=== PATIENT | male | born 1985 | race Hispanic/Latino ===

== ENCOUNTER 2017-04-23 07:20 | Inpatient (IN) | payer MEDICAID ==
--- NOTE | 2017-04-23 12:54 | C.PDOC ---
History Of Present Illness 31 y/o male presents to ED transferred from [facility] in [place] by EMS for psych evaluation on depression. Patient is accepted for admission at Hospital. No other complaints at this time. Time Seen by Provider: 04/23/17 07:56 Chief Complaint (Nursing): Psychiatric Evaluation History Per: Patient History/Exam Limitations: no limitations Onset/Duration Of Symptoms: Days Current Symptoms Are (Timing): Still Present Past Medical History Reviewed: Historical Data, Nursing Documentation, Vital Signs Vital Signs: Last Vital Signs Temp 97.1 F L 04/24/17 08:08 Pulse 60 04/24/17 08:08 Resp 19 04/24/17 08:08 BP 118/67 04/24/17 08:08 Pulse Ox 98 04/23/17 12:55 - Medical History PMH: Anxiety, Depression Family History: States: No Known Family Hx - Social History Hx Alcohol Use: Yes Hx Substance Use: Yes Review Of Systems Respiratory: Negative for: Shortness of Breath Skin: Negative for: Rash Neurological: Negative for: Headache, Dizziness Psych: Positive for: Depression. Negative for: Suicidal ideation Physical Exam - Physical Exam Appears: Non-toxic, No Acute Distress Skin: Normal Color, Warm Head: Atraumatic, Normacephalic Neck: Supple Cardiovascular: Rhythm Regular Respiratory: Normal Breath Sounds Gastrointestinal/Abdominal: Soft, No Tenderness Extremity: Normal ROM Neurological/Psych: Oriented x3, Normal Speech, Normal Cognition ED Course And Treatment O2 Sat by Pulse Oximetry: 98 (RA) Pulse Ox Interpretation: Normal Medical Decision Making Medical Decision Making: Pt stable for PES evaluation / admission Disposition - Disposition Disposition: HOSPITALIZED Disposition Time: 00:00 Condition: GOOD - Clinical Impression Clinical Impression: Depression - Scribe Statement The provider has reviewed the documentation as recorded by the Aidaibemeterio Leos All medical record entries made by the Aidaibemeterio were at my direction and personally dictated by me. I have reviewed the chart and agree that the record accurately reflects my personal performance of the history, physical exam, medical decision making, and the department course for this patient. I have also personally directed, reviewed, and agree with the discharge instructions and disposition.
[2017-04-23] MEDS: Multiple Vitamins Tab PO SCH (14:35)
--- NOTE | 2017-04-23 14:50 | PCM.PSYCH ---
Initial Psychiatric Evaluation - Initial Psychiatric Evaluation Type of Admission: Voluntary Legal Status: Capacity Chief Complaint (in patient's own words): "I'm sick of being a drug addict." History of Present Illness and Precipitating Events: Patient is a 32 year old male who lives with his mother in [place], [place]. He is from his . He has two kids, ages 5 and 2. 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 Pt has history of anxiety and depression being treated with gabapentin, trazodone, zoloft, and klonopin. His insurance ran out 2 months ago so he was not able to fill his medications, and started doing drugs. Pt came to the ED after overdosing on ecstasy. Pt states he used 30 ecstasy pills over 3 days. He stayed awake and in his car for 3 days while on ecstasy, stating that at first he used them to "forget his problems" but then he didn't care. Pt also uses cocaine nasally, $40 worth per day. he also drinks 1 pint of alcohol a day and experiences sweats/shaking if he does not drink. Pt smokes 1/2 ppd, and smokes pot. Pt has a history of crystal meth use. Patient denies opioid use. He has no AVH or delusions. Not manic but has ADHD sxs (since childhood) Pin Machine Operator spoke to his mother with his consent and she reported that he is suffering form "severe anxiety" and resorts to drugs all the time. Pt wants to go to inpatient rehab program. Past psych history: depression, anxiety Medical history: none Fam psych history: denies Fam abuse history: father and paternal uncles - alcohol abuse Current Medications: Active Medications Generic Name Dose Route Start Last Admin Trade Name Freq PRN Reason Stop Dose Admin Chlordiazepoxide 25 mg 04/23/17 13:28 Librium PO Q4H PRN Alcohol Withdrawal Clonidine HCl 0.1 mg 04/23/17 13:28 Catapres PO Q4H PRN Symptoms of alcohol withdrawl Escitalopram Oxalate 5 mg 04/23/17 13:30 04/23/17 14:35 Lexapro PO 5 mg DAILY YAYO Administration Folic Acid 1 mg 04/23/17 13:30 04/23/17 14:45 Folic Acid PO 1 mg DAILY YAYO Administration Gabapentin 300 mg 04/23/17 14:00 04/23/17 14:34 Neurontin PO 300 mg TID YAOY Administration Multivitamins 1 tab 04/23/17 13:30 04/23/17 14:35 Hexavitamin PO 1 tab DAILY YAYO Administration Nicotine 1 patch 04/23/17 13:30 04/23/17 14:34 Nicoderm Cq TD 1 patch DAILY YAYO Administration Pneumococcal Polyvalent Vaccine 0.5 ml 04/26/17 10:00 Pneumovax 23 Vaccine IM 04/26/17 10:01 .ONCE ONE Quetiapine Fumarate 100 mg 04/23/17 22:00 Seroquel PO HS YAYO Thiamine HCl 100 mg 04/23/17 13:30 04/23/17 14:34 Vitamin B1 Tab PO 100 mg DAILY YAYO Administration Trazodone HCl 50 mg 04/23/17 13:28 Desyrel PO HS PRN Insomnia Past Psychiatric History - Past Psychiatric History Previous Treatment History: Inpatient Pertinent Medical Hx (Current Medical&Sleep Prob, Allergies): Allergies Allergy/AdvReac Type Severity Reaction Status Date / Time No Known Allergies Allergy Verified 04/23/17 07:33 No Known Home Med 04/23/17 Review of Systems - Review of Systems All systems: reviewed and no additional remarkable complaints except - Psychiatric Psychiatric: Anxiety, Depression. absent: Hallucinations, Homicidal Ideation, Suicidal Ideation Mental Status Examination - Personal Presentation Personal Presentation: Looks older than stated age - Affect Affect: Broad - Motor Activity Motor Activity: Calm - Reliability in Providing Information Reliability in Providing Information: Good - Speech Speech: Organized - Mood Mood: Depressed, Anxious - Formal Thought Process Formal Thought Process: No Impairment - Obsessions/Compulsions Obsessions: No Compulsions: No - Cognitive Functions Orientation: Person, Place, Situation, Time Sensorium: Alert Attention/Concentration: Attentive Judgement: Intact, as evidence by: Insight regarding need for hospitalization Memory: Recent intact, as evidence by: Ability to recall events of the day, Remote intact, as evidenced by: Abilit to recall sig. life events - Risk Risk: Withdrawal, Diminished functioning - Strength & Assets Inventory Strength & Assets Inventory: Family support, Employment status, Cooperative - Limitations Limitations: Living alone DSM 5 DX - DSM 5 DSM 5 Diagnosis: Major depression, recurrent, severe, not-psychotic ANGELLA panic d/o Cocaine use d/o Stimulant use d/o - Recommended/Plan of Treatment Treatment Recommendations and Plan of Treatment: Depression - Seroquel and Lexapro - CBT and support Anxiety - Seroquel and lexapro - CBT and support - Relaxation skills - Gabapentin Alcohol use disorder -CBT -psychoeducation -supportive/individual therapy -use ND for abstinence -Librium if needed - Catapres prn Tobacco Use Disorder -nicotine replacement therapy Stimulants, cocaine: - Gabapentin - ND for abstinence 33 min Projected ELOS: 7 days Prognosis: good Discharge Plan and Discharge Criteria: No severe dep sxs refer to rehab or iop
[2017-04-24] MEDS: Multiple Vitamins Tab PO SCH (09:54)
--- NOTE | 2017-04-24 11:41 | PCM.PYCHPN ---
Psychiatric Progress Note - Psychiatric Progress Note Patient seen today, length of contact: 16 minutes Patient Chief Complaint: "I'm alright." Problems Identified/Issues Discussed: Patient seen, chart reviewed, and case discussed with staff. Pt states he is doing alright. He called his job yesterday to inform them he in the hospital, and states they fired him since he used his sick/paid leave days already. Pt states, "I don't care about losing my job, I can get another job. I just need to fix my life first." Pt denies any withdrawal symptoms. As per nursing staff, patient slept and ate well. Pt compliant with medications and reports no side effects. Pt's symptoms are improving- more time needed to stabilize. Support, psychoeducation given. After care discussed - patient wants to go to in -patient rehab. Pt informed to make phone calls to rehabs. Time: 16 min Mental Status Examination - Cognitive Function Orientation: Person, Place, Situation, Time Memory: Intact Attention: WNL Concentration: WNL Association: WNL Fund of Knowledge: WNL - Mood Mood: Depressed, Anxious - Affect Affect: Broad - Speech Speech: Appropriate - Formal Thought Process Formal Thought Process: No Impairment - Suicidal Ideation Suicidal Ideation: No - Homicidal Ideation Homicidal Ideation: No Goal/Treatment Plan - Goal/Treatment Plan Need for Continued Stay: Remain at risks for inpatient hospitalization, Discharge may exacerbated symptoms Progress Toward Problem(s) and Goals/Treatment Plan: Major Depressive Disorder - Seroquel and Lexapro - CBT and supportive tx - Attend groups and activities - Support and psychieducation ANGELLA - Seroquel and lexapro - CBT and support - Relaxation skills - Gabapentin Alcohol use disorder -CBT -psychoeducation -supportive/individual therapy -use [place] for abstinence -Librium if needed - Catapres prn Tobacco Use Disorder -nicotine replacement therapy Stimulants, cocaine: - Gabapentin - [place] for abstinence
[2017-04-25] MEDS: Multiple Vitamins Tab PO SCH (09:33)
--- NOTE | 2017-04-25 12:25 | PCM.PYCHPN ---
Psychiatric Progress Note - Psychiatric Progress Note Patient seen today, length of contact: 16 minutes Patient Chief Complaint: "I'm alright." Problems Identified/Issues Discussed: Patient seen, chart reviewed, and case discussed with staff. Pt denies any withdrawal symptoms. As per nursing staff, patient slept and ate well, but is still feeling depressed. Pt compliant with medications and reports no side effects. Pt's symptoms are improving- more time needed to stabilize. After care discussed - patient wants to go to in-patient rehab. Pt has been calling [facility], and is interested in going to [facility] in [place], which he plans to call today. Support, psychoeducation given. Time: 16 min Mental Status Examination - Cognitive Function Orientation: Person, Place, Situation, Time Memory: Intact Attention: WNL Concentration: WNL Association: WNL Fund of Knowledge: WNL - Mood Mood: Depressed, Anxious - Affect Affect: Broad - Speech Speech: Appropriate - Formal Thought Process Formal Thought Process: No Impairment - Suicidal Ideation Suicidal Ideation: No - Homicidal Ideation Homicidal Ideation: No Goal/Treatment Plan - Goal/Treatment Plan Need for Continued Stay: Remain at risks for inpatient hospitalization, Discharge may exacerbated symptoms Progress Toward Problem(s) and Goals/Treatment Plan: Major Depressive Disorder - Seroquel and Lexapro - CBT and supportive tx - Attend groups and activities - Support and psychieducation ANGELLA - Seroquel and lexapro - CBT and support - Relaxation skills - Gabapentin Alcohol use disorder -CBT -psychoeducation -supportive/individual therapy -use [place] for abstinence -Librium if needed - Catapres prn Tobacco Use Disorder -nicotine replacement therapy Stimulants, cocaine: - Gabapentin - NC for abstinence Estimated Date of D/C: 04/29/17 (As per patient improval)
[2017-04-26] MEDS ORDERED: Pneumococcal 23-Valent Vaccine IM ONE (10:00)
[2017-04-26] MEDS: Multiple Vitamins Tab PO SCH (10:00)
--- NOTE | 2017-04-26 13:15 | PCM.PYCHPN ---
Psychiatric Progress Note - Psychiatric Progress Note Patient seen today, length of contact: 15 min Patient Chief Complaint: "I am starting to feel better" Problems Identified/Issues Discussed: The pt is seen, chart reviewed and case discussed. The pt is improving with medications and no breakthrough sxs reported or noted. No SEs from meds Support and psychoed given ME and CBt used After care discussed, he and SW called [facility] Medication Change: Yes Medical Record Reviewed: Yes Mental Status Examination - Cognitive Function Orientation: Person, Place, Situation, Time Memory: Intact Attention: WNL Concentration: WNL Association: WNL Fund of Knowledge: WNL - Mood Mood: Depressed, Anxious - Affect Affect: Broad - Speech Speech: Appropriate - Formal Thought Process Formal Thought Process: No Impairment - Suicidal Ideation Suicidal Ideation: No - Homicidal Ideation Homicidal Ideation: No Goal/Treatment Plan - Goal/Treatment Plan Need for Continued Stay: Remain at risks for inpatient hospitalization, Discharge may exacerbated symptoms Progress Toward Problem(s) and Goals/Treatment Plan: Major Depressive Disorder - Seroquel and Lexapro - CBT and supportive tx - Attend groups and activities - Support and psychieducation ANGELLA - Seroquel and lexapro - CBT and support - Relaxation skills - Gabapentin Alcohol use disorder -CBT -psychoeducation -supportive/individual therapy -use ME for abstinence -Librium if needed - Catapres prn Tobacco Use Disorder -nicotine replacement therapy Stimulants, cocaine: - Gabapentin - ME for abstinence Estimated Date of D/C: 04/29/17 (As per patient improval)
[2017-04-27] MEDS: Multiple Vitamins Tab PO SCH (09:28)
--- NOTE | 2017-04-27 09:54 | PCM.PYCHPN ---
Psychiatric Progress Note - Psychiatric Progress Note Patient seen today, length of contact: 15 min Patient Chief Complaint: I am feeling better.' Problems Identified/Issues Discussed: Patient seen and evaluated, chart reviewed and discussed with the nurse. Patient reports improvement in his mood and reports improvement in the withdrawal symptoms. However, he appears anxious and was found pacing back and forth in the hallways. He denies any feelings of hopelessness and helplessness. He denies any auditory or visual hallucinations. He is taking medication and denied any side effects. Supportive therapy and psychoeducation were given. Medication Change: No Medical Record Reviewed: Yes Mental Status Examination - Cognitive Function Orientation: Person, Place, Situation, Time Memory: Intact Attention: WNL Concentration: WNL Association: WNL Fund of Knowledge: WNL - Mood Mood: Depressed, Anxious - Affect Affect: Broad - Speech Speech: Appropriate - Formal Thought Process Formal Thought Process: No Impairment - Suicidal Ideation Suicidal Ideation: No - Homicidal Ideation Homicidal Ideation: No Goal/Treatment Plan - Goal/Treatment Plan Need for Continued Stay: Remain at risks for inpatient hospitalization, Discharge may exacerbated symptoms Progress Toward Problem(s) and Goals/Treatment Plan: Major Depressive Disorder - Seroquel and Lexapro - CBT and supportive tx - Attend groups and activities - Support and psychieducation ANGELLA - Seroquel and lexapro - CBT and support - Relaxation skills - Gabapentin Alcohol use disorder -CBT -psychoeducation -supportive/individual therapy -use [place] for abstinence -Librium if needed - Catapres prn Tobacco Use Disorder -nicotine replacement therapy Stimulants, cocaine: - Gabapentin - [place] for abstinence Estimated Date of D/C: 04/29/17 (As per patient improval) - Smoking Cessation Smoking Cessation Initiated: No
[2017-04-28 07:42] VITALS: O2SAT 99
[2017-04-28] MEDS: Multiple Vitamins Tab PO SCH (10:35)
--- NOTE | 2017-04-28 12:27 | PCM.PYCHPN ---
Psychiatric Progress Note - Psychiatric Progress Note Patient seen today, length of contact: 15 min Patient Chief Complaint: I am looking forward to go to the rehab.' Problems Identified/Issues Discussed: Patient seen and evaluated, chart reviewed and discussed with the nurse. Today patient appears anxious however he states that he is looking forward to go to the rehab tomorrow. He reports much improvement in the withdrawal symptoms. He denies any feelings of hopelessness and helplessness and denies any suicidal ideation or homicidal ideation. He is taking medication and denied any side effects. Supportive therapy and psychoeducation were given. Medication Change: No Medical Record Reviewed: Yes Mental Status Examination - Cognitive Function Orientation: Person, Place, Situation, Time Memory: Intact Attention: WNL Concentration: WNL Association: WNL Fund of Knowledge: WNL - Mood Mood: Anxious - Affect Affect: Broad - Speech Speech: Appropriate - Formal Thought Process Formal Thought Process: No Impairment - Suicidal Ideation Suicidal Ideation: No - Homicidal Ideation Homicidal Ideation: No Goal/Treatment Plan - Goal/Treatment Plan Need for Continued Stay: Remain at risks for inpatient hospitalization, Discharge may exacerbated symptoms Progress Toward Problem(s) and Goals/Treatment Plan: Major Depressive Disorder - Seroquel and Lexapro - CBT and supportive tx - Attend groups and activities - Support and psychieducation ANGELLA - Seroquel and lexapro - CBT and support - Relaxation skills - Gabapentin Alcohol use disorder -CBT -psychoeducation -supportive/individual therapy -use [place] for abstinence -Librium if needed - Catapres prn Tobacco Use Disorder -nicotine replacement therapy Stimulants, cocaine: - Gabapentin - PA for abstinence Estimated Date of D/C: 04/29/17 (As per patient improval)
[2017-04-29] MEDS: Multiple Vitamins Tab PO SCH (10:08)
--- NOTE | 2017-04-29 22:38 | PCM.PYCHPN ---
Psychiatric Progress Note - Psychiatric Progress Note Patient seen today, length of contact: 15 min Patient Chief Complaint: "I am very worried" Problems Identified/Issues Discussed: The pt is seen, chart reviewed and case discussed. Support and psychoed given [place] and CBt used After care discussed, keno writer called [facility] and spoke to the surgery scheduling coordinator. They want to talk with the pt now and will accept him He also applied to [facility] Medication Change: No Medical Record Reviewed: Yes Mental Status Examination - Cognitive Function Orientation: Person, Place, Situation, Time Memory: Intact Attention: WNL Concentration: WNL Association: WN Fund of Knowledge: WN - Mood Mood: Anxious - Affect Affect: Broad - Speech Speech: Appropriate - Formal Thought Process Formal Thought Process: No Impairment - Suicidal Ideation Suicidal Ideation: No - Homicidal Ideation Homicidal Ideation: No Goal/Treatment Plan - Goal/Treatment Plan Need for Continued Stay: Remain at risks for inpatient hospitalization, Discharge may exacerbated symptoms Progress Toward Problem(s) and Goals/Treatment Plan: Major Depressive Disorder - Seroquel and Lexapro - CBT and supportive tx - Attend groups and activities - Support and psychieducation ANGELLA - Seroquel and lexapro - CBT and support - Relaxation skills - Gabapentin Alcohol use disorder -CBT -psychoeducation -supportive/individual therapy -use [place] for abstinence -Librium if needed - Catapres prn Tobacco Use Disorder -nicotine replacement therapy Stimulants, cocaine: - Gabapentin - [place] for abstinence Estimated Date of D/C: 04/30/17 (As per patient improval)
--- NOTE | 2017-04-30 09:39 | PCM.PYCHDC ---
Mental Status Examination - Mental Status Examination Orientation: Person, Place, Situation, Time Memory: Intact Mood: Anxious Affect: Constricted Speech: Appropriate Attention: WNL Concentration: WNL Association: WNL Fund of Knowledge: WNL Formal Thought Process: No Impairment Suicidal Ideation: No Current Homicidal Ideation?: No Discharge Summary - Discharge Note Reason for Hospitalization: Depression, suicidality. Cocaine and ecstasy use. Consultations:: List each consultation separately and include: 1. Reason for request. 2. Findings. 3. Follow-up Summary of Hospital Course include:: 1. Description of specific treatment plan utilized for patients during their course of treatmen. 2. Summarize the time- course for resolution of acute symptoms and/or regressed behaviors. 3. Describe issues identified and worked on during hospitalization. 4. Describe medication utilized. 5. Describe medical problems identified and treated. 6. Reassessment of suicide risk Summary of Hospital Course: On admission: Patient is a 32 year old male who lives with his mother in [place], [place]. He is from his . He has two kids, ages 5 and 2. 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 Pt has history of anxiety and depression being treated with gabapentin, trazodone, zoloft, and klonopin. His insurance ran out 2 months ago so he was not able to fill his medications, and started doing drugs. Pt came to the ED after overdosing on ecstasy. Pt states he used 30 ecstasy pills over 3 days. He stayed awake and in his car for 3 days while on ecstasy, stating that at first he used them to "forget his problems" but then he didn't care. Pt also uses cocaine nasally, $40 worth per day. he also drinks 1 pint of alcohol a day and experiences sweats/shaking if he does not drink. Pt smokes 1/2 ppd, and smokes pot. Pt has a history of crystal meth use. Patient denies opioid use. He has no AVH or delusions. Not manic but has ADHD sxs (since childhood) Construction Technology Instructor spoke to his mother with his consent and she reported that he is suffering form "severe anxiety" and resorts to drugs all the time. Pt wants to go to inpatient rehab program. Past psych history: depression, anxiety Medical history: none Fam psych history: denies Fam abuse history: father and paternal uncles - alcohol abuse Hospital course: The pt was admitted and started on treatment with psychotherapy, support, psychoeducation and medications. [place] and CBT used. The pt attended groups and activities, as well as milieu therapy. All the risks and benefits of medications are discussed and the patient understood and agreed. After care discussed with the patient. He was initially interested in IOP or outpt level of care but once he found out that he was fired from his job he began calling rehabs. He was motivated and tried many and was able to get in [email or web address] [facility] - commercial underwriter also called an spoke with their intake person. He was overall pleasant and depressed but improved a lot - Final Diagnosis (DSM 5) Condition upon Discharge: GOOD DSM 5: Major depression, recurrent, severe, not-psychotic ANGELLA panic d/o Cocaine use d/o Stimulant use d/o Disposition: HOME/ ROUTINE Follow-up Treatment Plan: Continue below medications after discharge. Follow after care plan as discussed: [facility] Use relapse prevention skills Return to ER or call 911 if suicidal, homicidal or symptoms relapse. Stay away from stress, alcohol and drugs. See primary doctor once a year. Prescriptions/Medication Reconciliation: Escitalopram [Lexapro] 10 mg PO DAILY #30 tab QUEtiapine [Seroquel] 100 mg PO HS #30 tab traZODone [Desyrel] 50 mg PO HS PRN #30 tab PRN Reason: Insomnia - Smoking Cessation Smoking Cessation Medication prescribed: No - Antipsychotic Medications Pt discharged on 2 or more routine antipsychotic medications: No
[2017-04-30] MEDS: Multiple Vitamins Tab PO SCH (09:53)
[2017-04-30 10:42] VITALS: BP 131/74; PULSE 67; RESP 18; TEMP 97.8
== END 2017-04-30 11:40 | disposition home or self-care (01) | DRG 430 ==
LOC: C.ER 07:20 → C.5E 07:56
PROVIDERS: ADMIT Psychiatry & Neurology Psychiatry; ATTEND Psychiatry & Neurology Psychiatry
PROC: HZ59ZZZ Individual Psychotherapy for Substance Abuse Treatment, Supportive (ICD-10-PCS; principal; 2017-04-23)
PROC: GZ3ZZZZ Medication Management (ICD-10-PCS; 2017-04-23)
DX: F33.2 Major depressive disorder, recurrent severe without psychotic features (principal); F10.239 Alcohol dependence with withdrawal, unspecified; F14.10 Cocaine abuse, uncomplicated; F15.10 Other stimulant abuse, uncomplicated; F17.210 Nicotine dependence, cigarettes, uncomplicated; F41.1 Generalized anxiety disorder; F90.9 Attention-deficit hyperactivity disorder, unspecified type

== ENCOUNTER 2017-08-06 16:58 | Inpatient (IN) | payer MEDICAID ==
[2017-08-06 17:21] VITALS: BMI 28.8
[2017-08-06 18:35] LABS: BASO % 0.4 % (0.0-2.0); EOS # 0.5 K/uL (0.0-0.7); EOS % 4.8 % (0.0-4.0); LYMPH # 3.6 K/uL (1.0-4.3); LYMPH % 32.2 % (20.0-40.0); MEAN CELL VOLUME 83.4 fL (80.0-94.0); MEAN CORPUSCULAR HEMOGLOBIN 28.5 pg (27.0-31.0); MEAN CORPUSCULAR HGB CONC 34.2 g/dL (33.0-37.0); MEAN PLATELET VOLUME 8.7 fL (7.2-11.7); MONO # 0.9 K/uL (0.0-0.8); MONO % 8.1 % (0.0-10.0); NRBC % 0.2 % (0.0-2.0); RED CELL DISTRIBUTION WIDTH 13.5 % (11.5-14.5); WHITE BLOOD COUNT 11.1 K/uL (4.8-10.8)
[2017-08-06 18:44] LABS: CHLORIDE 102 mmol/L (98-107); POTASSIUM 3.8 mmol/L (3.6-5.2); SODIUM 138 mmol/L (132-148)
[2017-08-06 18:46] LABS: GFR AFRICAN-AMERICAN > 60
[2017-08-06 18:47] LABS: ALB/GLOB RATIO 1.6 (1.0-2.1); ALKALINE PHOSPHATASE 46 U/L (38-126); ALT/SGPT 110 U/L (21-72); AST/SGOT 195 U/L (17-59); BILIRUBIN,TOTAL 1.6 mg/dL (0.2-1.3); BLOOD UREA NITROGEN 21 mg/dL (9-20); CALCIUM 8.6 mg/dl (8.6-10.4); CARBON DIOXIDE 28 mmol/L (22-30); GLUCOSE,RANDOM 89 mg/dL (75-110); TOTAL PROTEIN 7.1 g/dL (6.3-8.3)
[2017-08-06 18:48] LABS: ALCOHOL SERUM < 10 mg/dl (0-10); RBC URINE 1 /hpf (0-3); URINE BACTERIA RARE (<OCC); URINE BILIRUBIN NEGATIVE (NEGATIVE); URINE BLOOD NEGATIVE (NEGATIVE); URINE COLOR Yellow (YELLOW); URINE GLUCOSE (UA) NORMAL (Normal); URINE KETONE TRACE mg/dL (NEGATIVE); URINE LEUKOCYTE ESTERASE NEG Leu/uL (Negative); URINE PROTEIN 1+ mg/dL (NEGATIVE); URINE UROBILINOGEN NORMAL mg/dL (0.2-1.0); WBC URINE < 1 /hpf (0-5)
--- NOTE | 2017-08-06 20:18 | C.PDOC ---
Time Seen by Provider: 08/06/17 18:11 Chief Complaint (Nursing): Psychiatric Evaluation History Per: Patient Onset/Duration Of Symptoms: Days Current Symptoms Are (Timing): Worse Suicide/Self Injury Attempted (Context): None Modifying Factor(s): Alcohol, Cocaine, Crack Severity: Severe Associated Symptoms: Suicidal Thoughts Additional History Per: Prior Records Past Medical History Reviewed: Historical Data, Nursing Documentation, Vital Signs Vital Signs: Last Vital Signs Temp 97.8 F 08/06/17 17:25 Pulse 74 08/06/17 17:25 Resp 18 08/06/17 17:25 BP 132/80 08/06/17 17:25 Pulse Ox 97 08/06/17 17:25 - Medical History PMH: Anxiety, Depression Surgical History: No Surg Hx - [facility] Procedures INDIV PSYCHOTHERAPY FOR SUBSTANCE ABUSE TREATMENT, SUPPORT (04/23/17) MEDICATION MANAGEMENT (04/23/17) Family History: States: Unknown Family Hx - Social History Hx Tobacco Use: Yes Hx Alcohol Use: Yes (vodka 10 years) Hx Substance Use: Yes (cocaine, lena ecstacy) - Immunization History Hx Tetanus Toxoid Vaccination: No Hx Influenza Vaccination: No Hx Pneumococcal Vaccination: No Review Of Systems Except As Marked, All Systems Reviewed And Found Negative. Constitutional: Negative for: Fever Cardiovascular: Negative for: Chest Pain Respiratory: Negative for: Shortness of Breath Gastrointestinal: Negative for: Vomiting, Abdominal Pain Musculoskeletal: Negative for: Neck Pain Neurological: Negative for: Weakness, Numbness, Seizures Psych: Positive for: Psychosis, Other (Insomnia) Physical Exam - Physical Exam Appears: Agitated, Other (Anxious. Fidgety. ) Skin: Normal Color, Warm, Dry Head: Atraumatic, Normacephalic Eye(s): bilateral: PERRL, EOMI Neck: Normal ROM, Supple Cardiovascular: Rhythm Regular Respiratory: Normal Breath Sounds, No Accessory Muscle Use Gastrointestinal/Abdominal: Soft, No Tenderness Extremity: Normal ROM Neurological/Psych: Oriented x3, Normal Motor, Normal Sensation ED Course And Treatment - Laboratory Results Result Diagrams: 08/06/17 18:27 08/06/17 18:27 O2 Sat by Pulse Oximetry: 97 Pulse Ox Interpretation: Normal Progress Note: Pt is medically stable for psychiatric admission. Pt mildly improved after Ativan. Reassessment Condition: Improved Disposition - Disposition Disposition: HOSPITALIZED Disposition Time: 20:00 Condition: STABLE - Clinical Impression Clinical Impression: Bipolar disorder, Drug abuse
--- NOTE | 2017-08-06 22:24 | PCM.BM ---
<Frida Hernandez - Last Filed: 08/06/17 22:23> Treatment Plan Problems - Problems identified on initial assessmt Depression Date Initiated: 08/06/17 Time Initiated: 21:10 Assessment reference: NA Status: Active Suicidal Ideation Date Initiated: 08/06/17 Time Initiated: 21:10 Assessment reference: NA Status: Active Treatment assets and liabiliti Patient Assests: self-reliant, ADL independent Patient Liabilities: poor support system, substance abuse - Milieu Protocol Maintain good personal hygiene: daily Encourage regular showers, daily Remind patient to perform daily oral care Maintain personal safety: every shift Educate patient to report safety concerns to staff, every shift Monitor environment for contraband/sharps Medication safety: Monitor for expected outcome, potential side effects: every shift, Assess barriers to learning: every shift, Assess readiness for medication education: every shift <Digna Saenz - Last Filed: 08/07/17 11:07> Family Contact Family involvement: Famliy/SO not involved - Goals for Treatment Patient goals for treatment: "I want to go to rehab at [facility]." Discharge/Continuing Care - Education Needs Education Needs: Patient Medication, Patient Coping Skills, Patient Placement options, Patient Community resources - Discharge Discharge Criteria: Tolerates medication w/o severe side effects, Reduction of target symptoms Discharge to:: Substance Abuse Rehab - Treatment Team Participation Discussed with Family/SO: No Was Patient/Family/SO present at Treatment Team Meeting: Yes <Isabel Lovett - Last Filed: 08/07/17 12:26> - Diagnosis (1) Depression Status: Acute Interventions: 08/07/17 12:26 * Assess/adjust medications daily and /or as needed * See patient on an individual basis 7x/week to assess symptoms of depression * Monitor for side effects & effectiveness of medications * (2) Amphetamine use disorder, moderate Status: Acute Interventions: 08/07/17 12:26 * Assess 7x/week regarding severity of withdrawal * Educate regarding risks, benefits, side effects and alternatives of medications * Use Motivational Interviewing for abstinence * Use CBT for relapse prevention * Medication management for withdrawal symptoms * Encourage medication assisted treatment * (3) Alcohol use disorder, moderate, dependence Status: Acute Interventions: 08/07/17 12:26 * Assess 7x/week regarding severity of withdrawal * Educate regarding risks, benefits, side effects and alternatives of medications * Use Motivational Interviewing for abstinence * Use CBT for relapse prevention * Medication management for withdrawal symptoms * Encourage medication assisted treatment *
--- NOTE | 2017-08-07 11:28 | PCM.PSYCH ---
Initial Psychiatric Evaluation - Initial Psychiatric Evaluation Type of Admission: Voluntary Legal Status: Capacity Chief Complaint (in patient's own words): "I'm depressed again" History of Present Illness and Precipitating Events: Patient is a 32 year old male who used to live with his mother in [place], [place], but now homeless. He is from his . He has two kids, ages 5 and 2. He is unemployed currently. He was discharged form in April and went to [facility] in [place]. He claims his then GF demanded that he come home as he needed him financially so he left recently but then they broke up and he relapsed 6 days ago. He claims he uses a pint of alcohol, $40 worth cocaine per day and some ecstasy since then. He got more depressed and suicidal and even jumped in front of a bus yesterday. Nothing happened. He also claims he was hearing "negative voices" lately. Pt has history of anxiety and depression being treated with gabapentin, trazodone, zoloft, and klonopin. Pt smokes 1/2 ppd, and smokes pot. Pt has a history of crystal meth use. Patient denies opioid use. Not manic but has ADHD sxs (since childhood) Pt wants to go to inpatient rehab program. Past psych history: depression, anxiety Medical history: none Fam psych history: denies Fam abuse history: father and paternal uncles - alcohol abuse Current Medications: Active Medications Generic Name Dose Route Start Last Admin Trade Name Freq PRN Reason Stop Dose Admin Benztropine Mesylate 2 mg 08/06/17 23:35 Cogentin PO Q6 PRN Extra Pyramidal Symptoms Diphenhydramine HCl 50 mg 08/06/17 23:35 Benadryl PO Q6 PRN Extra Pyramidal Symptoms Haloperidol 5 mg 08/06/17 23:35 Haldol PO Q8 PRN Moderate Agitation Haloperidol Lactate 5 mg 08/06/17 23:35 Haldol IM Q8 PRN Moderate Agitation Trazodone HCl 50 mg 08/06/17 23:45 Desyrel PO HS [facility] Past Psychiatric History - Past Psychiatric History Previous Treatment History: Inpatient Pertinent Medical Hx (Current Medical&Sleep Prob, Allergies): Allergies Allergy/AdvReac Type Severity Reaction Status Date / Time No Known Allergies Allergy Verified 08/06/17 17:20 No Known Home Med 08/06/17 Review of Systems - Psychiatric Psychiatric: Abnormal Sleep Pattern, Anhedonia, Anxiety, Behavioral Changes, Depression, Difficulty Concentrating, Hallucinations, Irritability. absent: Homicidal Ideation, Paranoia, Suicidal Ideation Mental Status Examination - Personal Presentation Personal Presentation: Looks stated age - Affect Affect: Constricted - Motor Activity Motor Activity: Calm - Reliability in Providing Information Reliability in Providing Information: Good - Speech Speech: Organized - Mood Mood: Depressed, Anxious - Formal Thought Process Formal Thought Process: No Impairment - Cognitive Functions Orientation: Person, Place, Situation, Time Sensorium: Alert Attention/Concentration: Attentive Estimate of Intelligence: Average Judgement: Intact, as evidence by: Insight regarding need for hospitalization Memory: Recent intact, as evidence by: Ability to recall events of the day, Remote intact, as evidenced by: Abilit to recall sig. life events - Risk Risk: Diminished functioning - Strength & Assets Inventory Strength & Assets Inventory: Employment history, Skills, Life experience, Cooperative - Limitations Limitations: Other DSM 5 DX - DSM 5 DSM 5 Diagnosis: Major depression, recurrent, severe with psychotic sxs Cocaine use d/o - severe Alcohol use d/o - moderate (just relapsed) Amphetamine use d/o - moderate r/o ADHD r/ bipolar II d/o r/o personality d/o - Recommended/Plan of Treatment Treatment Recommendations and Plan of Treatment: Start Lexapro for depression gabapentin for anxiety Seroquel for AH and insomnia Attend groups and activities Individual therapy Psychoeducation and support Encourage compliance with meds and after care Refer to outpatient program Teach healthy lifestyle methods, i.e. diet, exercise, meditation Smoking cessation Substance use: UT for abstinence Monitor wdw sxs 32 min Projected ELOS: 6-7 days Prognosis: good with treatment Discharge Plan and Discharge Criteria: No severe dep sxs Refer to [facility] - Smoking Cessation Smoking Cessation Initiated: Yes
--- NOTE | 2017-08-08 10:58 | PCM.PYCHPN ---
Psychiatric Progress Note - Psychiatric Progress Note Patient seen today, length of contact: 18 min Patient Chief Complaint: "I'm not well" Problems Identified/Issues Discussed: The pt is seen, chart reviewed, case discussed with staff. Support given, CBT and OR used briefly No new symptoms reported, improving slowly and needs more time No SEs from medications, risks discussed. After care discussed, considering one of the [employer] Medication Change: Yes Medical Record Reviewed: Yes Mental Status Examination - Cognitive Function Orientation: Person, Place, Situation, Time Memory: Intact Attention: Poor Concentration: Poor Association: WNL Fund of Knowledge: WNL - Mood Mood: Depressed, Anxious - Affect Affect: Constricted - Speech Speech: Appropriate - Formal Thought Process Formal Thought Process: No Impairment - Suicidal Ideation Suicidal Ideation: No - Homicidal Ideation Homicidal Ideation: No Goal/Treatment Plan - Goal/Treatment Plan Need for Continued Stay: Discharge may exacerbated symptoms, Severe functional impairment Progress Toward Problem(s) and Goals/Treatment Plan: Lexapro for depression gabapentin for anxiety Seroquel for AH and insomnia Attend groups and activities Individual therapy Psychoeducation and support Encourage compliance with meds and after care Refer to outpatient program Teach healthy lifestyle methods, i.e. diet, exercise, meditation Smoking cessation Substance use: OR for abstinence Monitor wdw sxs
[2017-08-09 07:40] VITALS: O2SAT 99
--- NOTE | 2017-08-09 11:41 | PCM.PYCHPN ---
Psychiatric Progress Note - Psychiatric Progress Note Patient seen today, length of contact: 18 min Patient Chief Complaint: "Still depressed" Problems Identified/Issues Discussed: The pt is seen, chart reviewed, case discussed with staff. Support given, CBT and OR used briefly No new symptoms reported, improving slowly and needs more time No SEs from medications, risks discussed. After care discussed, still interested in rehab but now he says he wants short term only. He is advised to make calls and talk with the Sw (otherwise he is in bed all the time) Medication Change: Yes (meds change) Medical Record Reviewed: Yes Mental Status Examination - Cognitive Function Orientation: Person, Place, Situation, Time Memory: Intact Attention: Poor Concentration: Poor Association: WNL Fund of Knowledge: WNL - Mood Mood: Depressed, Anxious - Affect Affect: Constricted - Speech Speech: Appropriate - Formal Thought Process Formal Thought Process: No Impairment - Suicidal Ideation Suicidal Ideation: No - Homicidal Ideation Homicidal Ideation: No Goal/Treatment Plan - Goal/Treatment Plan Need for Continued Stay: Discharge may exacerbated symptoms, Severe functional impairment Progress Toward Problem(s) and Goals/Treatment Plan: Lexapro for depression gabapentin for anxiety Seroquel for AH and insomnia Attend groups and activities Individual therapy Psychoeducation and support Encourage compliance with meds and after care Refer to [facility] or [facility] Teach healthy lifestyle methods, i.e. diet, exercise, meditation Smoking cessation Substance use: OR for abstinence Monitor wdw sxs
--- NOTE | 2017-08-10 19:01 | PCM.PYCHPN ---
Psychiatric Progress Note - Psychiatric Progress Note Patient seen today, length of contact: 15 minutes Patient Chief Complaint: I'm feeling much better Problems Identified/Issues Discussed: Patient seen. Chart reviewed. Case discussed with the staff. Issues related to illness and treatment were discussed with the patient. Reported compliant with treatment with no adverse affects. Tolerating treatment very well. Reported feeling much better At the time of evaluation, patient was awake alert oriented 3, had no delusions , no auditory or visual hallucinations, no suicidal ideations or homicidal ideations. Medical Problems: None reported Diagnostic Results: Reviewed DSM 5 Symptoms Update: Improving with treatment Medication Change: No Medical Record Reviewed: Yes Mental Status Examination - Cognitive Function Orientation: Person, Place, Situation, Time Memory: Intact Attention: WNL Concentration: WNL Association: [facility] Fund of Knowledge: [facility] Decription of patient's judgement and insights: Fair - Mood Mood: Neutral (Neutral) - Affect Affect: Other (Appropriate) - Speech Speech: Appropriate - Formal Thought Process Formal Thought Process: No Impairment - Suicidal Ideation Suicidal Ideation: No - Homicidal Ideation Homicidal Ideation: No Goal/Treatment Plan - Goal/Treatment Plan Need for Continued Stay: Remain at risks for inpatient hospitalization, Discharge may exacerbated symptoms, Severe functional impairment Progress Toward Problem(s) and Goals/Treatment Plan: Patient education Supportive therapy Continue treatment as before Patient will go to [facility] after discharge, from the hospital for follow- up care. Estimated Date of D/C: 08/12/17 - Smoking Cessation Smoking Cessation Initiated: No
--- NOTE | 2017-08-11 15:02 | PCM.PYCHPN ---
Psychiatric Progress Note - Psychiatric Progress Note Patient seen today, length of contact: 15 minutes Patient Chief Complaint: I'm feeling much better Problems Identified/Issues Discussed: Patient seen. Chart reviewed. Case discussed with the staff. Issues related to illness and treatment were discussed with the patient. Reported compliant with treatment with no adverse affects. Tolerating treatment very well. Reported feeling much better with better sleep and appetite. At the time of evaluation, patient was awake alert oriented 3, had no delusions , no auditory or visual hallucinations, no suicidal ideations or homicidal ideations. Medical Problems: None reported Diagnostic Results: Reviewed DSM 5 Symptoms Update: Improving with treatment Medication Change: No Medical Record Reviewed: Yes Mental Status Examination - Cognitive Function Orientation: Person, Place, Situation, Time Memory: Intact Attention: WNL Concentration: WNL Association: WNL Fund of Knowledge: [facility] Decription of patient's judgement and insights: Fair - Mood Mood: Neutral (Neutral) - Affect Affect: Other (Appropriate) - Speech Speech: Appropriate - Formal Thought Process Formal Thought Process: No Impairment - Suicidal Ideation Suicidal Ideation: No - Homicidal Ideation Homicidal Ideation: No Goal/Treatment Plan - Goal/Treatment Plan Need for Continued Stay: Remain at risks for inpatient hospitalization, Discharge may exacerbated symptoms, Severe functional impairment Progress Toward Problem(s) and Goals/Treatment Plan: Patient education Supportive therapy Continue treatment as before Patient will go to [facility] after discharge, from the hospital for follow-up care. Estimated Date of D/C: 08/12/17 - Smoking Cessation Smoking Cessation Initiated: No
[2017-08-12 08:04] VITALS: BP 114/71; PULSE 83; RESP 17; TEMP 98.3
--- NOTE | 2017-08-12 09:48 | PCM.PYCHDC ---
Mental Status Examination - Mental Status Examination Orientation: Person Discharge Summary - Discharge Note Consultations:: List each consultation separately and include: 1. Reason for request. 2. Findings. 3. Follow-up Summary of Hospital Course include:: 1. Description of specific treatment plan utilized for patients during their course of treatmen. 2. Summarize the time- course for resolution of acute symptoms and/or regressed behaviors. 3. Describe issues identified and worked on during hospitalization. 4. Describe medication utilized. 5. Describe medical problems identified and treated. 6. Reassessment of suicide risk Summary of Hospital Course: Patient is a 32 year old male who used to live with his mother in [place], [place], but now homeless. He is from his . He has two kids, ages 5 and 2. He is unemployed currently. He was discharged form in April and went to [facility] in [place]. He claims his then GF demanded that he come home as he needed him financially so he left recently but then they broke up and he relapsed 6 days ago. He claims he uses a pint of alcohol, $40 worth cocaine per day and some ecstasy since then. He got more depressed and suicidal and even jumped in front of a bus yesterday. Nothing happened. He also claims he was hearing "negative voices" lately. Pt has history of anxiety and depression being treated with gabapentin, trazodone, zoloft, and klonopin. Pt smokes 1/2 ppd, and smokes pot. Pt has a history of crystal meth use. Patient denies opioid use. Not manic but has ADHD sxs (since childhood) Pt wants to go to inpatient rehab program. Past psych history: depression, anxiety Medical history: none Fam psych history: denies Fam abuse history: father and paternal uncles - alcohol abuse - Diagnosis (1) Depression Current Visit: No Status: Acute (2) Amphetamine use disorder, moderate Current Visit: Yes Status: Acute (3) Alcohol use disorder, moderate, dependence Current Visit: Yes Status: Acute - Final Diagnosis (DSM 5) Condition upon Discharge: STABLE Disposition: HOME/ ROUTINE Follow-up Treatment Plan: Lexapro for depression gabapentin for anxiety Seroquel for AH and insomnia Attend groups and activities Individual therapy Psychoeducation and support Encourage compliance with meds and after care Refer to [facility] or [facility] Teach healthy lifestyle methods, i.e. diet, exercise, meditation Smoking cessation Substance use: OK for abstinence Monitor wdw sxs Prescriptions/Medication Reconciliation: Escitalopram [Lexapro] 10 mg PO DAILY #30 tab Gabapentin [Neurontin] 300 mg PO TID #90 cap hydrOXYzine HCl [Atarax] 50 mg PO Q6H PRN #60 tab PRN Reason: Anxiety QUEtiapine [Seroquel] 100 mg PO HS #30 tab traZODone [Desyrel] 50 mg PO HS #30 tab
== END 2017-08-12 10:53 | disposition home or self-care (01) | DRG 430 ==
LOC: C.ER 16:58 → C.5E 20:21
PROVIDERS: ADMIT Psychiatry & Neurology Psychiatry; ATTEND Psychiatry & Neurology Psychiatry
PROC: GZ3ZZZZ Medication Management (ICD-10-PCS; principal; 2017-08-06)
PROC: GZHZZZZ Group Psychotherapy (ICD-10-PCS; 2017-08-06)
PROC: GZ56ZZZ Individual Psychotherapy, Supportive (ICD-10-PCS; 2017-08-06)
PROC: HZ99ZZZ Pharmacotherapy for Substance Abuse Treatment, Other Replacement Medication (ICD-10-PCS; 2017-08-06)
DX: F33.3 Major depressive disorder, recurrent, severe with psychotic symptoms (principal); F15.20 Other stimulant dependence, uncomplicated; F14.90 Cocaine use, unspecified, uncomplicated; F10.20 Alcohol dependence, uncomplicated; F12.90 Cannabis use, unspecified, uncomplicated; F17.210 Nicotine dependence, cigarettes, uncomplicated; F31.81 Bipolar II disorder; F90.9 Attention-deficit hyperactivity disorder, unspecified type; F41.9 Anxiety disorder, unspecified; G47.00 Insomnia, unspecified

== ENCOUNTER 2018-07-13 06:20 | Inpatient (IN) | payer MEDICAID ==
[2018-07-13 06:21] VITALS: BMI 28.8
--- NOTE | 2018-07-13 07:22 | C.PDOC ---
History Of Present Illness 33 year old male with a past medical history of anxiety and depression presents to the emergency department with complaints of visual and auditory hallucinations for the last three days. Patient admits to using heroin intranasally over the last few weeks. Otherwise, he denies alcohol abuse, suicidal and homicidal ideation, or any injuries. Time Seen by Provider: 07/13/18 07:07 Chief Complaint (Nursing): Psychiatric Evaluation History Per: Patient History/Exam Limitations: no limitations Onset/Duration Of Symptoms: Days (3) Current Symptoms Are (Timing): Still Present Suicide/Self Injury Attempted (Context): None Modifying Factor(s): Other (heroin) Associated Symptoms: Other (visual and auditory hallucinations). denies: Suicidal Thoughts, Suicidal Plan Past Medical History Reviewed: Historical Data, Nursing Documentation, Vital Signs Vital Signs: Last Vital Signs Temp 98.0 F 07/13/18 10:26 Pulse 101 H 07/13/18 10:26 Resp 20 07/13/18 10:26 BP 148/88 07/13/18 10:26 Pulse Ox 100 07/13/18 10:26 - Medical History PMH: Anxiety, Depression Denies: Diabetes, Seizures, Sexually Transmitted Disease Surgical History: No Surg Hx - [facility] Procedures GROUP PSYCHOTHERAPY (08/06/17) INDIV PSYCHOTHERAPY FOR SUBSTANCE ABUSE TREATMENT, SUPPORT (04/23/17) INDIVIDUAL PSYCHOTHERAPY, SUPPORTIVE (08/06/17) MEDICATION MANAGEMENT (08/06/17) PHARMACOTHERAPY FOR SUBSTANCE ABUSE, OTH REPLACE MED (08/06/17) Family History: States: No Known Family Hx - Social History Hx Tobacco Use: Yes Hx Alcohol Use: Yes Hx Substance Use: Yes - Immunization History Hx Tetanus Toxoid Vaccination: No Hx Influenza Vaccination: No Hx Pneumococcal Vaccination: No Review Of Systems Neurological: Positive for: Altered Mental Status Psych: Positive for: Other (visual and auditory hallucinations). Negative for: Suicidal ideation Physical Exam - Physical Exam Appears: Non-toxic, No Acute Distress Skin: Warm, Dry Head: Atraumatic, Normacephalic Eye(s): bilateral: EOMI, Other (pupils pinpoint) Oral Mucosa: Moist Neck: Normal ROM, Supple Chest: Symmetrical Cardiovascular: Rhythm Regular, No Murmur Respiratory: Normal Breath Sounds, No Rales, No Rhonchi, No Wheezing Extremity: Normal ROM (all extremities) Neurological/Psych: Oriented x3, Normal Speech, Normal Cognition ED Course And Treatment - Laboratory Results Result Diagrams: 07/13/18 07:50 07/13/18 07:50 O2 Sat by Pulse Oximetry: 98 (RA) Pulse Ox Interpretation: Normal Medical Decision Making Medical Decision Making: Impression: Plan: Alcohol Serum CMP Drug Screen CBC Glucose POC Urinalysis [facility] Crisis Eval 840 PES at bedside, patient voiced SI. Will place on 1:1 observation for suicide precaution. Patient still has not provided urine 1100 All labs reviewed. UDS +opiate and amphetamine. Patient medically cleared for admission PES spoke with Dr Lovett. Patient to be admitted to psych for depressive disorder. Disposition - Disposition Disposition Time: 11:30 Condition: STABLE - POA Present On Arrival: None - Clinical Impression Clinical Impression: Depressive disorder, Drug abuse - PA / DOG CATCHER / Resident Statement MD/DO has reviewed & agrees with the documentation as recorded. - Scribe Statement The provider has reviewed the documentation as recorded by the Scribe (Erich Coronado) All medical record entries made by the Scribe were at my direction and personally dictated by me. I have reviewed the chart and agree that the record accurately reflects my personal performance of the history, physical exam, medical decision making, and the department course for this patient. I have also personally directed, reviewed, and agree with the discharge instructions and disposition. Decision To Admit - Pt Status Changed To: Hospital Disposition Of: Inpatient - Admit Certification Admit to Inpatient:: After my assessment, the patient will require hospitalization for at least two midnights. This is because of the severity of symptoms shown, intensity of services needed, and/or the medical risk in this patient being treated as an outpatient. - InPatient: Physician Admission Certification: I certify that this patient requires 2 or more midnights of care for the following reason:: Patient will need inpatient treatment of depressive disorder as he expressed SI and also using drugs - . Bed Request Type: Psychiatry Admitting Physician: Isabel Lovett Patient Diagnosis: Depressive disorder, Drug abuse
[2018-07-13 07:54] LABS: BASO % 0.5 % (0.0-2.0); EOS # 0.1 K/uL (0.0-0.7); EOS % 0.8 % (0.0-4.0); HEMOGLOBIN 15.8 g/dL (12.0-18.0); LYMPH # 1.5 K/uL (1.0-4.3); LYMPH % 15.6 % (20.0-40.0); MEAN CORPUSCULAR HEMOGLOBIN 29.6 pg (27.0-31.0); MEAN CORPUSCULAR HGB CONC 34.5 g/dL (33.0-37.0); MEAN PLATELET VOLUME 8.5 fL (7.2-11.7); MONO # 0.6 K/uL (0.0-0.8); MONO % 6.2 % (0.0-10.0); NEUT # 7.5 K/uL (1.8-7.0); NEUT % 76.9 % (50.0-75.0); NRBC % 0.1 % (0.0-2.0); RBC 5.33 Mil/uL (4.40-5.90); RED CELL DISTRIBUTION WIDTH 13.8 % (11.5-14.5); WHITE BLOOD COUNT 9.7 K/uL (4.8-10.8)
[2018-07-13 08:01] LABS: MEAN CELL VOLUME 85.8 fL (80.0-94.0)
[2018-07-13 08:08] LABS: ALB/GLOB RATIO 1.7 (1.0-2.1); ALBUMIN 4.4 g/dL (3.5-5.0); ALT/SGPT 44 U/L (21-72); AST/SGOT 29 U/L (17-59); BLOOD UREA NITROGEN 15 mg/dL (9-20); CALCIUM 9.1 mg/dl (8.6-10.4); GFR NON-AFRICAN AMERICAN > 60
[2018-07-13] MEDS ORDERED: Potassium Chloride 20 mEq ER Tab PO STA (08:22)
[2018-07-13] MEDS ORDERED: Potassium Chloride 20 mEq ER Tab PO ONE (08:43)
[2018-07-13 10:40] LABS: SQUAMOUS EPITHIAL < 1 /hpf (0-5); URINE BILIRUBIN NEGATIVE (NEGATIVE); URINE BLOOD NEGATIVE (NEGATIVE); URINE CLARITY Hazy (Clear); URINE COLOR Yellow (YELLOW); URINE GLUCOSE (UA) NORMAL (Normal); URINE HYALINE CAST >20 /lpf (0-2); URINE LEUKOCYTE ESTERASE NEG Leu/uL (Negative); URINE PROTEIN 1+ mg/dL (NEGATIVE); URINE UROBILINOGEN NORMAL mg/dL (0.2-1.0)
[2018-07-13 11:01] LABS: BARBITURATES, UR NEGATIVE (NEGATIVE); BENZODIAZEPINES, UR NEGATIVE (NEGATIVE); PHENCYCLIDINE, UR NEGATIVE (NEGATIVE)
[2018-07-13 11:34] LABS: OPIATES, UR POSITIVE (NEGATIVE)
[2018-07-13] MEDS ORDERED: Aluminum Hydroxide/Magnesium Hydroxide Susp (30 mL) PO PRN (11:47)
[2018-07-13 11:54] VITALS: O2SAT 98
--- NOTE | 2018-07-13 11:54 | PCM.PSYCH ---
Initial Psychiatric Evaluation - Initial Psychiatric Evaluation Type of Admission: Voluntary Legal Status: Capacity Chief Complaint (in patient's own words): "I am very sick" History of Present Illness and Precipitating Events: He is seen, chart reviewed, case discused. He is known from previous admissions in 2017. Patient is a 33 year old male who used to live with his mother in [place], [place], but now homeless. He is from his . He has two kids, ages 6 and 3. He is unemployed currently. He claims he uses 10 bags of heroin, some alcohol (used to drink heavily), significant amount of crystal meth, and in the past he would use $40 worth cocaine per day and some ecstasy - which he used last week. He got more depressed and suicidal and hearing voices now. He also claims he was sometimes seeing things when he is "high." Pt has history of anxiety and depression being treated with gabapentin, trazodone, zoloft, seroquel and klonopin. Pt smokes 1/2 ppd, and smokes MJ Not manic but has ADHD sxs (since childhood) Has vague paranoia, has been agitated and put on 4-pt restraint at [facility] but it was likely drug-induced. Past psych history: depression, anxiety Medical history: none Fam psych history: denies Fam abuse history: father and paternal uncles - alcohol abuse Current Medications: Active Medications Generic Name Dose Route Start Last Admin Trade Name Freq PRN Reason Stop Dose Admin Al Hydrox/Mg Hydrox/Simethicone 30 ml 07/13/18 11:47 Maalox 30 Ml PO TID PRN Indigestion / Heartburn Clonidine HCl 0.1 mg 07/13/18 11:47 Catapres PO Q8 PRN COWS Score More or Equal to 5 Loperamide HCl 2 mg 07/13/18 11:47 Imodium PO Q8 PRN Diarrhea Ondansetron HCl 4 mg 07/13/18 11:47 Zofran Tab PO Q8 PRN Nausea/Vomiting Past Psychiatric History - Past Psychiatric History Previous Treatment History: Inpatient Pertinent Medical Hx (Current Medical&Sleep Prob, Allergies): Allergies Allergy/AdvReac Type Severity Reaction Status Date / Time No Known Allergies Allergy Verified 07/13/18 06:32 No Known Home Med 07/13/18 Review of Systems - Neurological Neurological: UNREMARKABLE - Psychiatric Psychiatric: Abnormal Sleep Pattern, Anhedonia, Change in Appetite, Depression, Difficulty Concentrating, Hallucinations, Irritability, Mood Swings. absent: Homicidal Ideation, Paranoia, Suicidal Ideation Mental Status Examination - Personal Presentation Personal Presentation: Looks stated age - Affect Affect: Constricted - Motor Activity Motor Activity: Calm - Reliability in Providing Information Reliability in Providing Information: Fair - Speech Speech: Organized - Mood Mood: Depressed, Anxious - Formal Thought Process Formal Thought Process: Hallucinations - Cognitive Functions Orientation: Person, Place, Situation, Time Sensorium: Alert Attention/Concentration: Easily distracted Estimate of Intelligence: Average Judgement: Imparied, as evidence by: Poor judgement Memory: Recent intact, as evidence by: Ability to recall events of the day, Remote impaired as evidenced by: Inability to recall sig life events - Risk Risk: Withdrawal, Diminished functioning - Strength & Assets Inventory Strength & Assets Inventory: Cooperative - Limitations Limitations: Living alone, Other DSM 5 DX - DSM 5 DSM 5 Diagnosis: Major depression, recurrent, severe with psychotic sxs Opioid withdrawal Opioid use d/o - severe Cocaine use d/o - in early remission Alcohol use d/o - moderate 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 diet, exercise, meditation Smoking cessation Substance use: UT for abstinence Methadone for detox from opioids Gabapentin for methamphetamine wdw 31 min Projected ELOS: 5 days Prognosis: good w treatment
[2018-07-13] MEDS ORDERED: DiphenhydrAMINE 50 mg/ml Inj IM PRN (18:36)
--- NOTE | 2018-07-14 10:09 | PCM.PYCHPN ---
Psychiatric Progress Note - Psychiatric Progress Note Patient seen today, length of contact: 07/14/18 Patient Chief Complaint: Depression Problems Identified/Issues Discussed: The pt is seen, chart reviewed, case discussed with staff. The pt is compliant with medications and reports no side-effects. States that he is sleeping well. Will continue taking Lexapro and Gabapentin. Symptoms are improving but needs more time to stabilize. Pt attends groups and activities. Support given, psycho-education provided. After care discussed. pt wantys to be apart of the [employer] once discharged. Has been a member 1 year ago. Medication Change: No Medical Record Reviewed: Yes Mental Status Examination - Cognitive Function Orientation: Person, Place, Situation, Time - Mood Mood: Depressed, Anxious - Affect Affect: Constricted - Formal Thought Process Formal Thought Process: Hallucinations - Homicidal Ideation Homicidal Ideation: No
[2018-07-15 06:21] VITALS: RESP 20
--- NOTE | 2018-07-15 15:24 | PCM.BM ---
<CullenNeryn - Last Filed: 07/15/18 15:22> Treatment Plan Problems - Problems identified on initial assessmt depression Date Initiated: 07/15/18 Time Initiated: 15:23 Assessment reference: NA Status: Active substance abuse Date Initiated: 07/15/18 Time Initiated: 15:23 Assessment reference: NA Status: Active suicidal ideation Date Initiated: 07/15/18 Time Initiated: 15:24 Assessment reference: NA Status: Monitor Treatment assets and liabiliti Patient Assests: self-reliant, ADL independent, physically healthy Patient Liabilities: substance abuse - Milieu Protocol Maintain good personal hygiene: daily Encourage regular showers, daily Remind patient to perform daily oral care, daily Assist patient to perform ADL's Conduct patient checks and document Observation sheet: Q15 minutes Maintain personal safety: every shift Educate patient to report safety concerns to staff, every shift Monitor environment for contraband/sharps Medication safety: Monitor for expected outcome, potential side effects: every shift, Assess barriers to learning: every shift, Assess readiness for medication education: every shift Milieu Narrative: Lexapro for depression Gabapentin for anxiety Seroquel for AH and insomnia Attend groups and activities Individual therapy Psychoeducation and support Encourage compliance with meds and after care Refer to outpatient program Teach healthy lifestyle methods, i.e. diet, exercise, meditation Smoking cessation Substance use: UT for abstinence Methadone for detox from opioids Gabapentin for methamphetamine wdw 31 min Discharge/Continuing Care - Treatment Team Participation Patient/Family/SO Statement: Lexapro for depression Gabapentin for anxiety Seroquel for AH and insomnia Attend groups and activities Individual therapy Psychoeducation and support Encourage compliance with meds and after care Refer to outpatient program Teach healthy lifestyle methods, i.e. diet, exercise, meditation Smoking cessation Substance use: UT for abstinence Methadone for detox from opioids Gabapentin for methamphetamine wdw 31 min <David Jeff - Last Filed: 07/16/18 11:00> - Diagnosis (1) Depressive disorder Status: Acute Interventions: 07/16/18 11:00 * Assess/adjust medications daily and /or as needed * See patient on an individual basis 7x/week to assess symptoms of depression * Monitor for side effects & effectiveness of medications * (2) Drug abuse Status: Acute Interventions: 07/16/18 11:00 * Assess 7x/week regarding severity of withdrawal * Educate regarding risks, benefits, side effects and alternatives of medications * Use Motivational Interviewing for abstinence * Use CBT for relapse prevention * Medication management for withdrawal symptoms * Encourage medication assisted treatment * <Digna Saenz - Last Filed: 07/16/18 14:20> Family Contact Family involvement: Famliy/SO not involved - Goals for Treatment Patient goals for treatment: "I want to go to rehab." Discharge/Continuing Care - Education Needs Education Needs: Patient Medication, Patient Coping Skills, Patient Placement options, Patient Community resources - Discharge Discharge Criteria: Tolerates medication w/o severe side effects, No longer exhibiting s/s of withdrawal, Reduction of target symptoms Discharge to:: Substance Abuse Rehab - Treatment Team Participation Discussed with Family/SO: No Was Patient/Family/SO present at Treatment Team Meeting: Yes
--- NOTE | 2018-07-16 10:59 | PCM.PYCHPN ---
Psychiatric Progress Note - Psychiatric Progress Note Patient seen today, length of contact: 07/14/18 Patient Chief Complaint: Depression Problems Identified/Issues Discussed: The pt is seen, chart reviewed, case discussed with staff. The pt is compliant with medications and reports no side-effects. States that he is sleeping well. Will continue taking Lexapro and Gabapentin. Symptoms are improving but needs more time to stabilize. Pt attends groups and activities. Support given, psycho-education provided. After care discussed. pt wantys to be apart of the [facility] once discharged. Has been a member 1 year ago. Medication Change: No Medical Record Reviewed: Yes Mental Status Examination - Cognitive Function Orientation: Person, Place, Situation, Time - Mood Mood: Depressed, Anxious - Affect Affect: Constricted - Formal Thought Process Formal Thought Process: Hallucinations - Homicidal Ideation Homicidal Ideation: No
[2018-07-17 06:29] VITALS: BP 114/72; PULSE 68; TEMP 98.1
--- NOTE | 2018-07-17 10:27 | PCM.PYCHDC ---
Mental Status Examination - Mental Status Examination Orientation: Person, Place, Situation, Time Memory: Intact Mood: Neutral Affect: Constricted Speech: Soft Attention: WNL Concentration: WNL Association: WNL Fund of Knowledge: WNL Formal Thought Process: No Impairment Description of patient's judgement and insight: good, fair Psychotic Thoughts and Behaviors: denies any AVH Suicidal Ideation: No Current Homicidal Ideation?: No Discharge Summary - Discharge Note Consultations:: List each consultation separately and include: 1. Reason for request. 2. Findings. 3. Follow-up Summary of Hospital Course include:: 1. Description of specific treatment plan utilized for patients during their course of treatmen. 2. Summarize the time- course for resolution of acute symptoms and/or regressed behaviors. 3. Describe issues identified and worked on during hospitalization. 4. Describe medication utilized. 5. Describe medical problems identified and treated. 6. Reassessment of suicide risk - Diagnosis (1) Depressive disorder Current Visit: Yes Status: Acute (2) Drug abuse Current Visit: Yes Status: Acute - Final Diagnosis (DSM 5) Condition upon Discharge: STABLE Disposition: HOME/ ROUTINE Prescriptions/Medication Reconciliation: Escitalopram [Lexapro] 10 mg PO DAILY #30 tab traZODone [Desyrel] 100 mg PO HS PRN #30 tab PRN Reason: Insomnia
== END 2018-07-17 11:07 | disposition home or self-care (01) | DRG 430 ==
LOC: C.ER 06:20 → C.5E 11:39
PROVIDERS: ADMIT Psychiatry & Neurology Psychiatry; ATTEND Psychiatry & Neurology Psychiatry
PROC: GZ3ZZZZ Medication Management (ICD-10-PCS; principal; 2018-07-13)
PROC: HZ2ZZZZ Detoxification Services for Substance Abuse Treatment (ICD-10-PCS; 2018-07-13)
PROC: HZ91ZZZ Pharmacotherapy for Substance Abuse Treatment, Methadone Maintenance (ICD-10-PCS; 2018-07-13)
PROC: HZ99ZZZ Pharmacotherapy for Substance Abuse Treatment, Other Replacement Medication (ICD-10-PCS; 2018-07-13)
PROC: HZ59ZZZ Individual Psychotherapy for Substance Abuse Treatment, Supportive (ICD-10-PCS; 2018-07-13)
PROC: GZHZZZZ Group Psychotherapy (ICD-10-PCS; 2018-07-13)
PROC: GZ56ZZZ Individual Psychotherapy, Supportive (ICD-10-PCS; 2018-07-13)
DX: F33.3 Major depressive disorder, recurrent, severe with psychotic symptoms (principal); F11.23 Opioid dependence with withdrawal; F15.10 Other stimulant abuse, uncomplicated; F14.11 Cocaine abuse, in remission; F12.10 Cannabis abuse, uncomplicated; F31.81 Bipolar II disorder; F90.9 Attention-deficit hyperactivity disorder, unspecified type; F17.210 Nicotine dependence, cigarettes, uncomplicated; F10.10 Alcohol abuse, uncomplicated; Z59.0 Homelessness

== ENCOUNTER 2018-12-22 12:38 | Inpatient (IN) | payer MEDICAID ==
[2018-12-22 12:38] VITALS: BMI 28.8
--- NOTE | 2018-12-22 13:31 | C.PDOC ---
History Of Present Illness 33 y/o male,w/PMhx of polysubstance abuse, presents to the ER requesting detox from crystal meth and ETOH. Patient states that his last drink and his last drug use was 2 days ago. Patient is complaining of feeling " groggy".Denies having fever, chills, nausea, and vomiting. Time Seen by Provider: 12/22/18 13:22 Chief Complaint (Nursing): Substance Abuse History Per: Patient History/Exam Limitations: no limitations Past Medical History Reviewed: Historical Data, Nursing Documentation, Vital Signs Vital Signs: Last Vital Signs Temp 98.3 F 12/22/18 13:08 Pulse 99 H 12/22/18 13:08 Resp 20 12/22/18 13:08 BP 123/79 12/22/18 13:08 Pulse Ox 98 12/22/18 13:08 - Medical History PMH: Anxiety, Depression Denies: Diabetes, Hepatitis (Patient denied), HIV (Patient denied), HTN (Patient denied), Chronic Kidney Disease, Seizures, Sexually Transmitted Disease Other Surgeries: Hx of surgeries - [facility] Procedures DETOXIFICATION SERVICES FOR SUBSTANCE ABUSE TREATMENT (07/13/18) GROUP PSYCHOTHERAPY (07/13/18) INDIV PSYCHOTHERAPY FOR SUBSTANCE ABUSE TREATMENT, SUPPORT (07/13/18) INDIVIDUAL PSYCHOTHERAPY, SUPPORTIVE (07/13/18) MEDICATION MANAGEMENT (07/13/18) PHARMACOTHERAPY FOR SUBSTANCE ABUSE, METHADONE MAINT (07/13/18) PHARMACOTHERAPY FOR SUBSTANCE ABUSE, OTH REPLACE MED (07/13/18) Family History: States: No Known Family Hx - Social History Hx Tobacco Use: Yes Hx Alcohol Use: Yes (1 pt/day) Hx Substance Use: Yes - Immunization History Hx Tetanus Toxoid Vaccination: No Hx Influenza Vaccination: No Hx Pneumococcal Vaccination: No Review Of Systems Except As Marked, All Systems Reviewed And Found Negative. Constitutional: Negative for: Fever, Chills Gastrointestinal: Negative for: Nausea, Vomiting Physical Exam - Physical Exam Appears: No Acute Distress, Other (drowsy but able to respond) Skin: Normal Color, Warm, Other (no signs of trauma) Head: Atraumatic, Normacephalic Eye(s): bilateral: Normal Inspection Nose: Normal Oral Mucosa: Moist Neck: Supple Chest: Symmetrical Cardiovascular: Rhythm Regular Respiratory: Normal Breath Sounds, No Rales, No Rhonchi, No Wheezing Gastrointestinal/Abdominal: Normal Exam, Soft, No Tenderness, No Guarding, No Rebound Neurological/Psych: Oriented x3, Normal Speech ED Course And Treatment - Laboratory Results Result Diagrams: 12/22/18 16:49 12/22/18 16:49 O2 Sat by Pulse Oximetry: 98 (RA) Pulse Ox Interpretation: Normal Medical Decision Making Medical Decision Making: Patient was informed that there are no detox beds available. Patient now states that he has suicidal ideation. He notes that he does not have a plan. Disposition - Disposition Disposition: HOSPITALIZED Disposition Time: 17:53 Condition: GUARDED Forms: [facility] (Spanish) - Clinical Impression Clinical Impression: Drug dependence, Depression - Scribe Statement The provider has reviewed the documentation as recorded by the Aidaibe Michael Holman Provider Attestation: All medical record entries made by the Aidaibe were at my direction and personally dictated by me. I have reviewed the chart and agree that the record accurately reflects my personal performance of the history, physical exam, medical decision making, and the department course for this patient. I have also personally directed, reviewed, and agree with the discharge instructions and disposition. Decision To Admit - Pt Status Changed To: Hospital Disposition Of: Inpatient - Admit Certification Admit to Inpatient:: After my assessment, the patient will require ho spitalization for at least two midnights. This is because of the severity of symptoms shown, intensity of services needed, and/or the medical risk in this patient being treated as an outpatient. - InPatient: Physician Admission Certification: I certify that this patient requires 2 or more midnights of care for the following reason:: suicidal - . Bed Request Type: Psychiatry Admitting Physician: Isabel Lovett Patient Diagnosis: Drug dependence, Depression
[2018-12-22 16:56] LABS: BASO % 0.3 % (0.0-2.0); EOS # 0.1 K/uL (0.0-0.7); EOS % 0.9 % (0.0-4.0); HEMOGLOBIN 14.3 g/dL (12.0-18.0); LYMPH # 2.2 K/uL (1.0-4.3); LYMPH % 23.8 % (20.0-40.0); MEAN CORPUSCULAR HEMOGLOBIN 28.3 pg (27.0-31.0); MEAN PLATELET VOLUME 8.6 fL (7.2-11.7); MONO # 0.5 K/uL (0.0-0.8); MONO % 5.3 % (0.0-10.0); NEUT # 6.4 K/uL (1.8-7.0); NEUT % 69.7 % (50.0-75.0); RBC 5.04 Mil/uL (4.40-5.90); RED CELL DISTRIBUTION WIDTH 13.4 % (11.5-14.5); WHITE BLOOD COUNT 9.2 K/uL (4.8-10.8)
[2018-12-22 16:57] LABS: MEAN CELL VOLUME 83.1 fL (80.0-94.0)
[2018-12-22 17:04] LABS: SQUAMOUS EPITHIAL < 1 /hpf (0-5); URINE BILIRUBIN NEGATIVE (NEGATIVE); URINE BLOOD NEGATIVE (NEGATIVE); URINE CLARITY Clear (Clear); URINE GLUCOSE (UA) NORMAL (Normal); URINE LEUKOCYTE ESTERASE NEG Leu/uL (Negative); URINE PROTEIN 1+ mg/dL (NEGATIVE)
[2018-12-22 17:07] LABS: URINE COLOR YELLOW (YELLOW)
[2018-12-22 17:12] LABS: ALB/GLOB RATIO 1.6 (1.0-2.1); ALBUMIN 4.2 g/dL (3.5-5.0); ALT/SGPT 28 U/L (21-72); AST/SGOT 42 U/L (17-59); BLOOD UREA NITROGEN 9 mg/dL (9-20); CALCIUM 8.5 mg/dl (8.6-10.4); GFR NON-AFRICAN AMERICAN > 60
[2018-12-22 17:23] LABS: BARBITURATES, UR NEGATIVE (NEGATIVE); BENZODIAZEPINES, UR NEGATIVE (NEGATIVE); OPIATES, UR NEGATIVE (NEGATIVE); PHENCYCLIDINE, UR NEGATIVE (NEGATIVE)
--- NOTE | 2018-12-22 20:09 | PCM.BM ---
<Serina Coates - Last Filed: 12/22/18 19:58> Treatment Plan Problems - Problems identified on initial assessmt Depression Date Initiated: 12/22/18 Time Initiated: 20:26 Assessment reference: NA Status: Active Social Isolation Date Initiated: 12/22/18 Time Initiated: 20:26 Assessment reference: NA Status: Active Self Care Deficit Date Initiated: 12/22/18 Time Initiated: 20:26 Assessment reference: NA Status: Active Treatment assets and liabiliti Patient Assests: self-reliant, ADL independent, physically healthy, negotiates basic needs, cognitively intact Patient Liabilities: live alone (Homeless), financial problems, substance abuse (Crystal meth, Cocaine, ETOH), medical problems - Milieu Protocol Maintain good personal hygiene: daily Encourage regular showers, daily Remind patient to perform daily oral care, daily Assist patient to perform ADL's (Self), other Assist patient to perform ADL's Conduct patient checks and document Observation sheet: Q15 minutes (Safety) Maintain personal safety: every shift Educate patient to report safety concerns to staff, every shift Monitor environment for contraband/sharps Medication safety: Monitor for expected outcome, potential side effects: every shift, Assess barriers to learning: every shift, Assess readiness for medication education: every shift <Isabel Lovett - Last Filed: 12/23/18 17:58> - Diagnosis (1) Alcohol use disorder, moderate, dependence Status: Acute Interventions: 12/23/18 17:58 * Assess 7x/week regarding severity of withdrawal * Educate regarding risks, benefits, side effects and alternatives of medications * Use Motivational Interviewing for abstinence * Use CBT for relapse prevention * Medication management for withdrawal symptoms * Encourage medication assisted treatment * (2) Amphetamine use disorder, moderate Status: Acute Interventions: 12/23/18 17:58 * Assess 7x/week regarding severity of withdrawal * Educate regarding risks, benefits, side effects and alternatives of medications * Use Motivational Interviewing for abstinence * Use CBT for relapse prevention * Medication management for withdrawal symptoms * Encourage medication assisted treatment * (3) Depressive disorder Status: Acute Interventions: 12/23/18 17:59 * Assess/adjust medications daily and /or as needed * See patient on an individual basis 7x/week to assess symptoms of depression * Monitor for side effects & effectiveness of medications * <Digna Saenz - Last Filed: 12/24/18 11:55> Family Contact Family involvement: Famliy/SO not involved - Goals for Treatment Patient goals for treatment: "I need to go to rehab." Discharge/Continuing Care - Education Needs Education Needs: Patient Medication, Patient Coping Skills, Patient Placement options, Patient Community resources - Discharge Discharge Criteria: Tolerates medication w/o severe side effects, No longer exhibiting s/s of withdrawal, Reduction of target symptoms Discharge to:: Substance Abuse Rehab - Treatment Team Participation Discussed with Family/SO: No Was Patient/Family/SO present at Treatment Team Meeting: Yes
[2018-12-23] MEDS ORDERED: Aluminum Hydroxide/Magnesium Hydroxide Susp (30 mL) PO PRN (10:46)
--- NOTE | 2018-12-23 10:50 | PCM.PSYCH ---
Initial Psychiatric Evaluation - Initial Psychiatric Evaluation Type of Admission: Voluntary Legal Status: Capacity Chief Complaint (in patient's own words): "I'm not good" History of Present Illness and Precipitating Events: He is seen, chart reviewed, case discussed. He is known from previous admissions in 2018. Patient is a 33 year old male who used to live with his mother in [place], [place], but now homeless. He is from his . He has two kids, ages 6 and 3. He is unemployed currently. He presents with suicidal ideation and had a plan to jump off the bridge. He claims he sniffs a couple bags of heroin, drinks a pint of alcohol a day, and smokes, sniffs, and injects significant amounts of crystal meth. He also uses cocaine and some ecstasy. He got more depressed and suicidal with a plan to jump off a bridge. He also claims he was sometimes seeing things when he is "high." Patient is requesting HIV/Hep. C testing stating that he engages in risky sexual behavior sometimes. Pt has history of anxiety and depression being treated with gabapentin, trazodone, zoloft, seroquel and klonopin. Pt smokes 1/2 ppd, and denies smoking MJ Not manic but has ADHD sxs (since childhood) Past psych history: depression, anxiety Medical history: none known Fam psych history: denies Fam abuse history: father and paternal uncles - alcohol abuse Current Medications: Active Medications Generic Name Dose Route Start Last Admin Trade Name Freq PRN Reason Stop Dose Admin Al Hydrox/Mg Hydrox/Simethicone 30 ml 12/23/18 10:46 Maalox 30 Ml PO TID PRN Indigestion / Heartburn Clonidine HCl 0.1 mg 12/23/18 10:46 Catapres PO Q4 PRN COWS Score More or Equal to 5 Escitalopram Oxalate 10 mg 12/23/18 10:45 Lexapro PO DAILY YAYO Gabapentin 400 mg 12/23/18 10:00 12/23/18 09:35 Neurontin PO 400 mg TID YAYO Administration Hydroxyzine HCl 50 mg 12/22/18 22:00 Atarax PO Q6H PRN Anxiety Ibuprofen 600 mg 12/22/18 22:00 Motrin Tab PO Q6H PRN Pain, moderate (4-7) Influenza Virus Vaccine 60 mcg 12/25/18 10:00 Flucelvax Quad [id number] Syr IM 12/25/18 10:01 .ONCE ONE Loperamide HCl 2 mg 12/23/18 10:46 Imodium PO Q8 PRN Diarrhea Mirtazapine 15 mg 12/22/18 22:00 12/22/18 22:35 Remeron PO Not Given HS YAYO Ondansetron HCl 4 mg 12/23/18 10:46 Zofran Tab PO Q8 PRN Nausea/Vomiting Pneumococcal Polyvalent Vaccine 0.5 ml 12/25/18 10:00 Pneumovax 23 Vaccine IM 12/25/18 10:01 .ONCE ONE Trazodone HCl 100 mg 12/22/18 22:00 Desyrel PO HS PRN Insomnia Past Psychiatric History - Past Psychiatric History Previous Treatment History: Inpatient Pertinent Medical Hx (Current Medical&Sleep Prob, Allergies): Allergies Allergy/AdvReac Type Severity Reaction Status Date / Time No Known Allergies Allergy Verified 07/13/18 06:32 No Known Home Med 12/22/18 Review of Systems - Psychiatric Psychiatric: Abnormal Sleep Pattern, Anhedonia, Anxiety, Behavioral Changes, Depression, Difficulty Concentrating, Hopelessness, Irritability, Mood Swings, Paranoia. absent: Hallucinations, Homicidal Ideation, Suicidal Ideation (contracts for safety and will follow safety plan.) Mental Status Examination - Personal Presentation Personal Presentation: Looks stated age - Affect Affect: Depressed - Motor Activity Motor Activity: Other (restless) - Reliability in Providing Information Reliability in Providing Information: Fair - Speech Speech: Organized - Mood Mood: Depressed, Anxious - Formal Thought Process Formal Thought Process: Paranoia (vague) - Obsessions/Compulsions Obsessions: No Compulsions: No - Cognitive Functions Orientation: Person, Place, Situation, Time Sensorium: Alert Attention/Concentration: Attentive Abstract Thinking: Jay Estimate of Intelligence: Average Judgement: Intact, as evidence by: Good judgement Memory: Recent intact, as evidence by: Ability to recall events of the day, Remote intact, as evidenced by: Abilit to recall sig. life events - Risk Risk: Withdrawal, Diminished functioning - Strength & Assets Inventory Strength & Assets Inventory: Employment history, Cooperative - Limitations Limitations: Other DSM 5 DX - DSM 5 DSM 5 Diagnosis: Major depressive disorder, severe, recurrent, not psychotic Methamphetamine Use Disorder - severe opioid use disorder, moderate alcohol use disorder, severe Cocaine use d/o, severe Personality d/o ANGELLA - Recommended/Plan of Treatment Treatment Recommendations and Plan of Treatment: Lexapro for depression and anxiety d/p Remeron for insomnia and depressive symptoms Gabapentin for augmentation and anxiety Monitor wdw sxs As needed medications All risks, benefits and alternatives of the meds discussed, and the pt agreed and understood. Attend groups and activities Supportive therapy and psychoeducation [place] for abstinence CBT for relapse prevention Encourage MAT Refer to rehab or IOP, and self-help groups Teach healthy lifestyle methods, i.e. diet, exercise, meditation Smoking cessation with FL Nicotine patch if needed 34 min Projected ELOS: 4-5 days Prognosis: good with treatment - Smoking Cessation Smoking Cessation Initiated: Yes
--- NOTE | 2018-12-24 15:56 | PCM.PYCHPN ---
Psychiatric Progress Note - Psychiatric Progress Note Patient seen today, length of contact: 18 min Patient Chief Complaint: "I'm depressed and done with drugs. I need to go away for years!" Problems Identified/Issues Discussed: The pt is seen, chart reviewed, case discussed with staff. The pt is compliant with medications and reports no side-effects. Symptoms are improving but needs more time to stabilize. Pt attends groups and activities. Support given, psycho-education provided. After care discussed. Medication Change: Yes Medical Record Reviewed: Yes Mental Status Examination - Cognitive Function Orientation: Person, Place, Situation, Time Memory: Impaired Attention: Poor Concentration: Poor Association: WNL Fund of Knowledge: WNL - Mood Mood: Depressed, Anxious - Affect Affect: Constricted, Depressed - Speech Speech: Appropriate - Formal Thought Process Formal Thought Process: Paranoia (vague) - Suicidal Ideation Suicidal Ideation: No - Homicidal Ideation Homicidal Ideation: No Goal/Treatment Plan - Goal/Treatment Plan Need for Continued Stay: Severe depression anxiety, Discharge may exacerbated symptoms, Severe functional impairment Progress Toward Problem(s) and Goals/Treatment Plan: Lexapro for depression and anxiety d/p Remeron for insomnia and depressive symptoms Gabapentin for augmentation and anxiety Monitor wdw sxs As needed medications All risks, benefits and alternatives of the meds discussed, and the pt agreed and understood. Attend groups and activities Supportive therapy and psychoeducation ND for abstinence CBT for relapse prevention Encourage MAT Refer to rehab or IOP, and self-help groups Teach healthy lifestyle methods, i.e. diet, exercise, meditation Smoking cessation with ND Nicotine patch if needed Estimated Date of D/C: 12/29/18
[2018-12-25 06:34] VITALS: O2SAT 98
[2018-12-25] MEDS ORDERED: Pneumococcal 23-Valent Vaccine IM ONE (10:00)
[2018-12-25] MEDS ORDERED: Influenza Vaccine 60 mcg/0.5 mL SYR (4YR UP) IM ONE (10:00)
--- NOTE | 2018-12-25 12:14 | PCM.PYCHPN ---
Psychiatric Progress Note - Psychiatric Progress Note Patient seen today, length of contact: 15 min Patient Chief Complaint: "I'm still depressed" Problems Identified/Issues Discussed: The pt is seen, chart reviewed, case discussed with staff. Support and psychoeducation given, CBT and MA used briefly No new symptoms reported, improving slowly and needs more time No SEs from medications, risks discussed. After care discussed he wants long-term rehabilitation Test results discussed Medication Change: Yes (Meds adjusted) Medical Record Reviewed: Yes Mental Status Examination - Cognitive Function Orientation: Person, Place, Situation, Time Memory: Impaired Attention: Poor Concentration: Poor Association: WNL Fund of Knowledge: WNL - Mood Mood: Depressed, Anxious - Affect Affect: Constricted, Depressed - Speech Speech: Appropriate - Formal Thought Process Formal Thought Process: Paranoia (vague) - Suicidal Ideation Suicidal Ideation: No - Homicidal Ideation Homicidal Ideation: No Goal/Treatment Plan - Goal/Treatment Plan Need for Continued Stay: Severe depression anxiety, Discharge may exacerbated symptoms, Severe functional impairment Progress Toward Problem(s) and Goals/Treatment Plan: Lexapro for depression and anxiety d/p Remeron for insomnia and depressive symptoms Gabapentin for augmentation and anxiety Monitor wdw sxs As needed medications All risks, benefits and alternatives of the meds discussed, and the pt agreed and understood. Attend groups and activities Supportive therapy and psychoeducation MA for abstinence CBT for relapse prevention Encourage MAT Refer to rehab or IOP, and self-help groups Teach healthy lifestyle methods, i.e. diet, exercise, meditation Smoking cessation with MA Nicotine patch if needed Estimated Date of D/C: 12/29/18
--- NOTE | 2018-12-26 11:53 | PCM.PYCHPN ---
Psychiatric Progress Note - Psychiatric Progress Note Patient seen today, length of contact: 15 min Patient Chief Complaint: "I'm not OK" Problems Identified/Issues Discussed: The pt is seen again, chart reviewed, and case is discussed with the team. The pt denies any side-effects from meds. Attends activities and groups, brief individual therapy provided Not ready for discharge due to ongoing symptoms and high relapse risk. After care discussed again. Medication Change: Yes (Meds adjusted) Medical Record Reviewed: Yes Mental Status Examination - Cognitive Function Orientation: Person, Place, Situation, Time Memory: Impaired Attention: Poor Concentration: Poor Association: WNL Fund of Knowledge: WNL - Mood Mood: Depressed, Anxious - Affect Affect: Constricted, Depressed - Speech Speech: Appropriate - Formal Thought Process Formal Thought Process: Paranoia (vague) - Suicidal Ideation Suicidal Ideation: No - Homicidal Ideation Homicidal Ideation: No Goal/Treatment Plan - Goal/Treatment Plan Need for Continued Stay: Severe depression anxiety, Discharge may exacerbated symptoms, Severe functional impairment Progress Toward Problem(s) and Goals/Treatment Plan: Lexapro for depression and anxiety d/p Remeron for insomnia and depressive symptoms Gabapentin for augmentation and anxiety Monitor wdw sxs As needed medications All risks, benefits and alternatives of the meds discussed, and the pt agreed and understood. Attend groups and activities Supportive therapy and psychoeducation NV for abstinence CBT for relapse prevention Encourage MAT Refer to rehab or IOP, and self-help groups Teach healthy lifestyle methods, i.e. diet, exercise, meditation Smoking cessation with NV Nicotine patch if needed Estimated Date of D/C: 12/29/18
--- NOTE | 2018-12-27 21:21 | PCM.PYCHPN ---
Psychiatric Progress Note - Psychiatric Progress Note Patient seen today, length of contact: 16 min Patient Chief Complaint: "I'm not OK" Problems Identified/Issues Discussed: The pt is seen again, chart reviewed, and case is discussed with the team. The pt denies any side-effects from meds. Attends activities and groups, brief individual therapy provided Not ready for discharge due to ongoing symptoms and high relapse risk. After care discussed again. Medication Change: No Medical Record Reviewed: Yes Mental Status Examination - Cognitive Function Orientation: Person, Place, Situation, Time Memory: Impaired Attention: Poor Concentration: Poor Association: WNL Fund of Knowledge: WNL - Mood Mood: Depressed, Anxious - Affect Affect: Constricted, Depressed - Speech Speech: Appropriate - Formal Thought Process Formal Thought Process: Paranoia (vague) - Suicidal Ideation Suicidal Ideation: No - Homicidal Ideation Homicidal Ideation: No Goal/Treatment Plan - Goal/Treatment Plan Need for Continued Stay: Severe depression anxiety, Discharge may exacerbated symptoms, Severe functional impairment Progress Toward Problem(s) and Goals/Treatment Plan: Lexapro for depression and anxiety d/p Remeron for insomnia and depressive symptoms Gabapentin for augmentation and anxiety Monitor wdw sxs As needed medications All risks, benefits and alternatives of the meds discussed, and the pt agreed and understood. Attend groups and activities Supportive therapy and psychoeducation [place] for abstinence CBT for relapse prevention Encourage MAT Refer to rehab or IOP, and self-help groups Teach healthy lifestyle methods, i.e. diet, exercise, meditation Smoking cessation with [place] Nicotine patch if needed Estimated Date of D/C: 12/29/18
[2018-12-28 06:59] VITALS: RESP 18
[2018-12-29 09:49] VITALS: BP 123/82; PULSE 78; TEMP 97.4
--- NOTE | 2018-12-29 10:08 | PCM.PYCHDC ---
Mental Status Examination - Mental Status Examination Orientation: Person Discharge Summary - Discharge Note Consultations:: List each consultation separately and include: 1. Reason for request. 2. Findings. 3. Follow-up Summary of Hospital Course include:: 1. Description of specific treatment plan utilized for patients during their course of treatmen. 2. Summarize the time- course for resolution of acute symptoms and/or regressed behaviors. 3. Describe issues identified and worked on during hospitalization. 4. Describe medication utilized. 5. Describe medical problems identified and treated. 6. Reassessment of suicide risk Summary of Hospital Course: He is seen, chart reviewed, case discussed. He is known from previous admissions in 2018. Patient is a 33 year old male who used to live with his mother in [place], [place], but now homeless. He is from his . He has two kids, ages 6 and 3. He is unemployed currently. He presents with suicidal ideation and had a plan to jump off the bridge. He claims he sniffs a couple bags of heroin, drinks a pint of alcohol a day, and smokes, sniffs, and injects significant amounts of crystal meth. He also uses cocaine and some ecstasy. He got more depressed and suicidal with a plan to jump off a bridge. He also claims he was sometimes seeing things when he is "high." Patient is requesting HIV/Hep. C testing stating that he engages in risky sexual behavior sometimes. Pt has history of anxiety and depression being treated with gabapentin, trazodone, zoloft, seroquel and klonopin. Pt smokes 1/2 ppd, and denies smoking MJ Not manic but has ADHD sxs (since childhood) Past psych history: depression, anxiety Medical history: none known Fam psych history: denies Fam abuse history: father and paternal uncles - alcohol abuse He will go to [facility] or partial care He changed his mind at the last minute re [facility] where he had been referred to. Long session held re his self-destructive patterns, which he is aware. 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
== END 2018-12-29 11:21 | disposition home or self-care (01) | DRG 430 ==
LOC: C.ER 12:38 → C.5E 17:54
PROVIDERS: ADMIT Psychiatry & Neurology Psychiatry; ATTEND Psychiatry & Neurology Psychiatry
PROC: GZHZZZZ Group Psychotherapy (ICD-10-PCS; principal; 2018-12-22)
PROC: HZ52ZZZ Individual Psychotherapy for Substance Abuse Treatment, Cognitive-Behavioral (ICD-10-PCS; 2018-12-22)
PROC: HZ59ZZZ Individual Psychotherapy for Substance Abuse Treatment, Supportive (ICD-10-PCS; 2018-12-22)
PROC: HZ56ZZZ Individual Psychotherapy for Substance Abuse Treatment, Psychoeducation (ICD-10-PCS; 2018-12-22)
PROC: HZ42ZZZ Group Counseling for Substance Abuse Treatment, Cognitive-Behavioral (ICD-10-PCS; 2018-12-22)
PROC: HZ46ZZZ Group Counseling for Substance Abuse Treatment, Psychoeducation (ICD-10-PCS; 2018-12-22)
PROC: GZ58ZZZ Individual Psychotherapy, Cognitive-Behavioral (ICD-10-PCS; 2018-12-22)
PROC: GZ56ZZZ Individual Psychotherapy, Supportive (ICD-10-PCS; 2018-12-22)
DX: F33.2 Major depressive disorder, recurrent severe without psychotic features (principal); F11.20 Opioid dependence, uncomplicated; F14.20 Cocaine dependence, uncomplicated; F15.20 Other stimulant dependence, uncomplicated; F10.20 Alcohol dependence, uncomplicated; F17.210 Nicotine dependence, cigarettes, uncomplicated; R45.851 Suicidal ideations; F41.1 Generalized anxiety disorder; Z60.4 Social exclusion and rejection; G47.00 Insomnia, unspecified; Z59.0 Homelessness